=== PATIENT | female | born 1990 | race Caucasian/White ===

== ENCOUNTER 2018-03-21 19:03 | Emergency (ER) | payer SELFPAY ==
[~2018-03-21] VITALS: Ht 168.9 cm; Wt 54.0 kg
[2018-03-21] MEDS ORDERED: SODIUM CHLORIDE 0.9% 1,000 ML IV ONE (21:31)
[2018-03-21] MEDS ORDERED: MORPHINE SULFATE 4 MG/ML CPJ (NOT FOR IM USE) IV STA (21:31)
[2018-03-21] MEDS ORDERED: MAGNESIUM/ALUMINUM HYDROXIDE/SIMETHICONE 30ML UDC PO STA (21:31)
[2018-03-21] MEDS ORDERED: FAMOTIDINE 20MG/2ML VIAL IV STA (21:31)
[2018-03-21] MEDS ORDERED: ONDANSETRON HCL 4MG/2ML VIAL IV STA (21:31)
[2018-03-21 23:34] LABS: BASOPHILS % 0.8 % (0.0-2.0); CHLORIDE 107 mEq/L (98-107); EOSINOPHILS % 1.1 % (0.0-5.0); HEMATOCRIT. 34.4 % (36.0-48.0); HEMOGLOBIN. 11.1 g/dL (12.0-16.0); LYMPHOCYTES % 18.3 % (20.0-50.0); MEAN CORPUSCULAR HEMOGLOBIN 26.9 pg (28.0-32.0); MEAN CORPUSCULAR VOLUME 83.6 fL (81.0-99.0); MEAN PLATELET VOLUME 7.2 fl (7.4-10.4); MONOCYTES % 7.2 % (2.0-8.0); NEUTROPHILS % 72.6 % (40.0-76.0); PLATELET 396 x1000/uL (130-400); RED BLOOD CELL COUNT 4.12 mill/uL (4.2-5.4); RED CELL DISTRIBUTION WIDTH 15.4 % (11.6-14.6)
[2018-03-21 23:37] LABS: INR 1.1; PROTHROMBIN TIME 11.1 sec (9.1-11.1)
[2018-03-21 23:38] LABS: ETHANOL BLOOD < 10 mg/dL
[2018-03-22 00:21] LABS: HCG SCREEN NEGATIVE
[2018-03-22 04:19] VITALS: BP 122/78
== END 2018-03-22 04:25 | disposition home or self-care (01) ==
LOC: ER 20:25
DX: R10.32 Left lower quadrant pain (principal); F17.210 Nicotine dependence, cigarettes, uncomplicated; F12.90 Cannabis use, unspecified, uncomplicated
CPT/HCPCS: 36415; 74176; 76830; 76856; 80053; 83690; 84703; 85025; 85610; 96374; 96375; 99285; G0482; J2270; J3490; J7030

== ENCOUNTER 2018-04-07 11:24 | Emergency (ER) | payer SELFPAY ==
[~2018-04-07] VITALS: Ht 167.6 cm; Wt 57.0 kg
[2018-04-07 11:45] VITALS: BP 113/71
[2018-04-07] MEDS ORDERED: SODIUM CHLORIDE 0.9% 1,000 ML IV ONE (11:45)
[2018-04-07] MEDS ORDERED: KETOROLAC 15MG/ML VIAL IV ONE (11:45)
[2018-04-07] MEDS ORDERED: METHYLPREDNISOLONE SOD SUCC 40 MG/ML VIAL IV ONE (11:45)
[2018-04-07 13:21] LABS: MONOTEST NEGATIVE (NEGATIVE)
== END 2018-04-07 15:08 | disposition home or self-care (01) ==
LOC: ER 12:44
DX: J02.9 Acute pharyngitis, unspecified (principal); Z90.49 Acquired absence of other specified parts of digestive tract
CPT/HCPCS: 86308; 87070; 87430; 96374; 96375; 99285; J1885; J2920; J7030